=== PATIENT | male | born 1960 | race Caucasian/White ===

== ENCOUNTER 2018-08-14 21:20 | Emergency (ER) | payer OTHER ==
--- NOTE | 2018-08-14 22:36 | EDPHY ---
H & P Stated Complaint: URINATING PINK URINE SINCE THIS AM, INCREASING, JUST OFF [facility] Time Seen by Provider: 08/14/18 22:19 HPI/ROS: HPI The patient presents with hematuria which has been present since this morning at 3:00 a.m.. He initially noticed pink urine which progressed throughout the day and now his urine is an blue color. He just returned a few hours ago from a cruise for which he was on for 10 days. He flew on an airplane from [place] to [place] today. 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 As he has never had hematuria before. He has is INR checked periodically, last checked a few months ago. Has been on the same dose of Coumadin for years. He does say while on the cruise for the last 10 days he has had more alcohol to drink than he usually does. He does not have any pain, dysuria, urgency, hesitancy. REVIEW OF SYSTEMS 10 systems were reviewed and negative with the exception of the elements mentioned in the history of present illness. 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 PHYSICAL General Appearance: Alert, no distress Eyes: Pupils equal and round no pallor or injection ENT, Mouth: Mucous membranes moist Respiratory: There are no retractions, lungs are clear to auscultation Cardiovascular: Regular rate and rhythm Gastrointestinal: Abdomen is soft and non-tender, no masses, bowel sounds normal Neurological: A&O, moves all extremities Skin: Warm and dry, no rashes Musculoskeletal: Neck is supple non tender Extremities: symmetrical, full range of motion Psychiatric: Patient is oriented X 3, there is no agitation Source: Patient Exam Limitations: No limitations - Personal History Current Tetanus/Diphtheria Vaccine: Unsure - Medical/Surgical History Hx Asthma: No Hx Chronic Respiratory Disease: No Hx Diabetes: No Hx Cardiac Disease: No Hx Renal Disease: No Hx Cirrhosis: No Hx Alcoholism: No Hx HIV/AIDS: No Hx Splenectomy or Spleen Trauma: No Other PMH: BLOOD CLOTS- LEG, LUNGS. ANTICARDIOLIPAN ANTIBODY SYNDROME. HTN, HYPERCHOL, RAYNAUDS - Social History Smoking Status: Former smoker Constitutional: Initial Vital Signs Temperature (C) 36.5 C 08/14/18 21:34 Heart Rate 58 L 08/14/18 21:34 Respiratory Rate 18 08/14/18 21:34 Blood Pressure 136/97 H 08/14/18 21:34 O2 Sat (%) 96 08/14/18 21:34 O2 Delivery Mode Room Air Allergies/Adverse Reactions: No Known Allergies Allergy (Unverified 08/14/18 21:31) Home Medications: Medication Instructions Recorded ALPRAZolam 08/14/18 Amlodipine Besylate 08/14/18 Aspirin 81mg (*) 08/14/18 Atorvastatin Calcium 08/14/18 CLONAZEPAM 08/14/18 Coumadin 08/14/18 Losartan Potassium 08/14/18 Methylfolate 08/14/18 Zolpidem Tartrate 08/14/18 Medical Decision Making Differential Diagnosis: 57-year-old male on Coumadin, recently returned from a cruise where he was drinking more alcohol than usual, presents with painless hematuria. On exam, well-appearing, normal vital signs. UA has returned and does demonstrate hematuria without sign of infection. Plan for labs including CBC and INR. Suspect ethanol interacting with Coumadin causing rise in INR leading to his symptoms. I doubt that he has ureterolithiasis or infection or malignancy based on his lack of symptoms. Labs demonstrated slightly elevated INR of 3.88. I have advised the patient to hold his Coumadin for the next 2 days. He then can likely resume taking it if he does not have any more hematuria. He should have his INR repeated in the next few days. He is happy with this plan and will be discharged from the ER. - Data Points Laboratory Results: Laboratory Results 08/14/18 22:36 08/14/18 22:36 08/14/18 08/14/18 08/14/18 22:36 22:36 22:36 WBC 8.06 10^3/uL 10^3/uL (3.80-9.50) RBC 4.50 10^6/uL 10^6/uL (4.40-6.38) Hgb 14.4 g/dL g/dL (13.7-17.5) Hct 41.9 % % (40.0-51.0) MCV 93.1 fL fL (81.5-99.8) MCH 32.0 pg pg (27.9-34.1) MCHC 34.4 g/dL g/dL (32.4-36.7) RDW 13.2 % % (11.5-15.2) Plt Count 264 10^3/uL 10^3/uL (150-400) MPV 9.5 fL fL (8.7-11.7) Neut % (Auto) Not Reported Lymph % (Auto) Not Reported [place] % (Auto) Not Reported Eos % (Auto) Not Reported Baso % (Auto) Not Reported Nucleat RBC Rel Count Not Reported Absolute Neuts (auto) Not Reported Absolute Lymphs (auto) Not Reported Absolute Monos (auto) Not Reported Absolute Eos (auto) Not Reported Absolute Basos (auto) Not Reported Absolute Nucleated RBC Not Reported Immature Gran % Not Reported Seg Neutrophils % 59.0 % % Band Neutrophils % 0.0 % % Lymphocytes % 26.0 % % Monocytes % 8.0 % % Eosinophils % 6.0 % % Basophils % 1.0 % % Metamyelocytes % 0.0 % % Myelocytes % 0.0 % % Promyelocytes % 0.0 % % Blast Cells % 0.0 % % Immature Gran # Not Reported Absolute Seg Neuts 4.76 10^3/uL 10^3/uL (1.70-6.50) Absolute Band Neuts 0.00 10^3/uL 10^3/uL (0.00-0.70) Absolute Lymphocytes 2.10 10^3/uL 10^3/uL (1.00-3.00) Absolute Monocytes 0.64 10^3/uL 10^3/uL (0.30-0.80) Absolute Eosinophils 0.48 10^3/uL H 10^3/uL (0.03-0.40) Absolute Basophils 0.08 10^3/uL 10^3/uL (0.02-0.10) Absolute Metamyelocyte 0.00 10^3/mL 10^3/mL (0.00-0.00) Absolute Myelocytes 0.00 10^3/mL 10^3/mL (0.00-0.00) Absolute Promyelocytes 0.00 10^3/uL 10^3/uL (0.00-0.00) Absolute Plasma Cells 0.00 10^3/uL 10^3/uL (0.00-0.00) Nucleated RBCs 0 /100 WBC /100 WBC (0-0) Absolute Blast Cells 0.00 10^3/uL 10^3/uL (0.00-0.00) Plasma Cells % 0.0 % % Platelet Estimate ADEQUATE (ADEQ) PT 37.7 SEC H SEC (12.0-15.0) INR 3.88 H (0.83-1.16) Sodium 137 mEq/L mEq/L (135-145) Potassium 3.6 mEq/L mEq/L (3.5-5.2) Chloride 104 mEq/L mEq/L (97-110) Carbon Dioxide 25 mEq/l mEq/l (22-31) Anion Gap 8 mEq/L mEq/L (6-14) BUN 24 mg/dL H mg/dL (7-23) Creatinine 1.0 mg/dL mg/dL (0.7-1.3) Estimated GFR > 60 Glucose 109 mg/dL H mg/dL (70-100) Calcium 9.4 mg/dL mg/dL (8.5-10.4) Urine Color Urine Appearance Urine pH Ur Specific [place] Urine Protein Urine Ketones Urine Blood Urine Nitrate Urine Bilirubin Urine Urobilinogen Ur Leukocyte Esterase Urine RBC Urine WBC Ur Epithelial Cells Urine Mucus Urine Glucose 08/14/18 21:45 WBC RBC Hgb Hct MCV MCH MCHC RDW Plt Count MPV Neut % (Auto) Lymph % (Auto) [place] % (Auto) Eos % (Auto) Baso % (Auto) Nucleat RBC Rel Count Absolute Neuts (auto) Absolute Lymphs (auto) Absolute Monos (auto) Absolute Eos (auto) Absolute Basos (auto) Absolute Nucleated RBC Immature Gran % Seg Neutrophils % Band Neutrophils % Lymphocytes % Monocytes % Eosinophils % Basophils % Metamyelocytes % Myelocytes % Promyelocytes % Blast Cells % Immature Gran # Absolute Seg Neuts Absolute Band Neuts Absolute Lymphocytes Absolute Monocytes Absolute Eosinophils Absolute Basophils Absolute Metamyelocyte Absolute Myelocytes Absolute Promyelocytes Absolute Plasma Cells Nucleated RBCs Absolute Blast Cells Plasma Cells % Platelet Estimate PT INR Sodium Potassium Chloride Carbon Dioxide Anion Gap BUN Creatinine Estimated GFR Glucose Calcium Urine Color RED Urine Appearance HAZY Urine pH 6.0 (5.0-7.5) Ur Specific [place] 1.016 (1.002-1.030) Urine Protein 2+ H (NEGATIVE) Urine Ketones NEGATIVE (NEGATIVE) Urine Blood 3+ H (NEGATIVE) Urine Nitrate NEGATIVE (NEGATIVE) Urine Bilirubin NEGATIVE (NEGATIVE) Urine Urobilinogen NEGATIVE EU EU (0.2-1.0) Ur Leukocyte Esterase NEGATIVE (NEGATIVE) Urine RBC 50-182 /hpf H /hpf (0-3) Urine WBC 5-10 /hpf H /hpf (0-3) Ur Epithelial Cells NONE SEEN /lpf /lpf (NONE-1+) Urine Mucus TRACE /lpf /lpf (NONE-1+) Urine Glucose NEGATIVE (NEGATIVE) Departure - Departure Disposition: Home, Routine, Self-Care Clinical Impression: Supratherapeutic INR, Hematuria Condition: Good Instructions: Elevated INR (ED) Additional Instructions: Please hold your Coumadin for the next 2 days. Then, you should have your INR rechecked. If it is therapeutic, then you can resume your Coumadin. Referrals: Lamar Morton MD [Medical Doctor] - As per Instructions
[2018-08-14 22:46] LABS: PLATELET COUNT 264 10^3/uL (150-400)
[2018-08-14 22:55] LABS: INR 3.88 (0.83-1.16); PROTIME(PATIENT) 37.7 SEC (12.0-15.0)
[2018-08-14 23:49] VITALS: BP 131/83
== END 2018-08-14 23:49 | disposition home or self-care (01) ==
DX: R31.9 Hematuria, unspecified (principal); R79.1 Abnormal coagulation profile; I10 Essential (primary) hypertension; Z79.01 Long term (current) use of anticoagulants

== ENCOUNTER → 2018-08-31 | Outpatient (CLI) | payer OTHER ==
[~2018-08-31] MED LIST: IOHEXOL 350mgI/ML (OMNIPAQUE) 150 ML BTL IV ONE
== END ==
LOC: FIMAGING 14:38
PROVIDERS: ATTEND Physician Assistant Medical
DX: N28.9 Disorder of kidney and ureter, unspecified (principal); R31.0 Gross hematuria; R59.1 Generalized enlarged lymph nodes
CPT/HCPCS: Q9967

== ENCOUNTER → 2018-09-14 | Outpatient (CLI) | payer OTHER | LOC: FIMAGING 12:48 | PROVIDERS: ATTEND Urology | DX: Z01.818 Encounter for other preprocedural examination (principal); N28.9 Disorder of kidney and ureter, unspecified ==

== ENCOUNTER → 2018-10-03 | Outpatient (CLI) | payer OTHER ==
[~2018-10-03] MED LIST changes: +GADOBUTROL 10 ML VIAL IVP ONE; -IOHEXOL 350mgI/ML (OMNIPAQUE) 150 ML BTL IV ONE
== END ==
LOC: FIMAGING 08:11
PROVIDERS: ATTEND Specialist
DX: N28.1 Cyst of kidney, acquired (principal)
CPT/HCPCS: A9585